=== PATIENT | male | born 1975 | race Caucasian/White ===

== ENCOUNTER 2016-10-18 09:14 | Emergency (ER) | payer BC, OTHER ==
[~2016-10-18] VITALS: Ht 188 cm; Wt 113.4 kg
--- NOTE | 2016-10-18 11:05 | ED General ---
General Chief Complaint: Psych/Social Disorder Stated Complaint: MIGRAINE SYMPTOMS Nursing Triage Note: PT REPORTS THAT HE HAS BEEN "FEELING OFF" FOR SEVERAL MONTHS. HE STATES HE GETS TO WHERE HE FEELS LIKE HE IS GOING TO PASS OUT. HE DOES C/O INTERMITTENT NAUSEA , BUT DENIES VOMITING. HE ALSO REPORTS THAT HE HAS BEEN SEEN BY [facility] FOR SAME SYMPTOMS AND WAS DX WITH ANXIETY. HE STATES THAT THEY PRESCRIBED HIM ATIVAN, BUT HE ONLY TOOK IT ONE TIME. Nursing Sepsis Screen: No Definite Risk Source of Information: Patient History of Present Illness Time Seen by Provider: 11:00 Initial Comments This 41-year-old white male presents with a relatively complex history of weakness and near syncope. The patient states that approximately 6 months ago he had an episode in which she did not feel normal. This led to an evaluation that included head and neck imaging demonstrate evidence of mycoplasma sinusitis for which she was treated with a Zithromax and subsequently incompletely treated with Augmentin. The patient's symptoms recurred today precipitating his presentation emergency department. The patient is complaining of weakness, migraine headache, near syncope, and general malaise. There's been no associated fever, chills, stiff neck or photophobia, productive cough, palpitations or shortness of breath. Patient denies lateralizing localizing neurologic findings. Past medical history includes shoulder surgery for rotator cuff 3 weeks ago. Patient is not this postoperative pain medications. He is not using a significant amount of oqre-vwq-mzhzemo medications. Allergies and Home Medications Allergies Coded Allergies: amoxicillin (Unverified Allergy, Unknown, 10/18/16) clavulanic acid (Unverified Allergy, Unknown, 10/18/16) Constitutional: No chills, diaphoresis (recurrent diaphoresis of his hands.) No fever, malaise weakness EENTM: No blurred vision, No epistaxis, No throat pain Respiratory: No cough Cardiovascular: No chest pain, No palpitations Gastrointestinal: No diarrhea, No nausea, No vomiting Genitourinary: No frequency, No hematuria Musculoskeletal: No back pain, No muscle pain Skin: No rash Psychiatric/Neurological: No Symptoms Reported Hematologic/Lymphatic: No Symptoms Reported Immunological/Allergic: no symptoms reported Past Qwdkapz-Qgqfee-Msmaav Hx Patient Social History Alcohol Use: Denies Use Recreational Drug Use: No Smoking Status: Never a Smoker 2nd Hand Smoke Exposure: No Recent Foreign Travel: No Contact w/Someone Who Travel: No Recent Infectious Disease Expo: No Recent Hopitalizations: No Surgeries HX Surgeries: Yes (HERNIA REPAIR) Surgeries: Appendectomy, Orthopedic Reviewed Nursing Assessment Reviewed/Agree w Nursing PMH: Yes Physical Exam Vital Signs Vital Sign - Last 12Hours 10/18/16 09:39 Temp 98.1 Pulse 80 Resp 16 B/P 157/113 Pulse Ox 98 O2 Delivery Room Air Capillary Refill : Less Than 3 Seconds General Appearance: No Apparent Distress WD/WN HEENT: Normal ENT Inspection Neck: Normal Inspection Respiratory: Lungs Clear Cardiovascular: Regular Rate, Rhythm Gastrointestinal: Normal Bowel Sounds Back: Normal Inspection Extremity: Normal Capillary Refill Normal Inspection Normal Range of Motion Neurologic/Psychiatric: Alert Oriented x3 No 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 Norm as Tested Skin: Normal Color Warm/Dry Progress/Results/Core Measures Results/Orders Lab Results Laboratory Tests Test 10/18/16 11:20 Range/Units Alanine Aminotransferase (ALT/SGPT) 16 0-55 U/L Albumin 4.7 H 3.2-4.5 G/DL Alkaline Phosphatase 93 40-136 U/L Anion Gap 10 5-14 MMOL/L Aspartate Amino Transf (AST/SGOT) 16 5-34 U/L BUN/Creatinine Ratio 12 Basophils # (Auto) 0.0 0.0-0.1 10^3/uL Basophils (%) (Auto) 1 0-10 % Blood Urea Nitrogen 14 7-18 MG/DL Calcium Level 9.5 8.5-10.1 MG/DL Carbon Dioxide Level 26 21-32 MMOL/L Chloride Level 107 98-107 MMOL/L Creatinine 1.21 0.60-1.30 MG/DL Eosinophils # (Auto) 0.0 0.0-0.3 10^3/uL Eosinophils (%) (Auto) 1 0-10 % Estimat Glomerular Filtration Rate > 60 Glucose Level 93 70-105 MG/DL Hematocrit 45 40-54 % Hemoglobin 15.5 13.3-17.7 G/DL Lymphocytes # (Auto) 1.3 1.0-4.0 X 10^3 Lymphocytes (%) (Auto) 30 12-44 % Mean Corpuscular Hemoglobin 28 25-34 PG Mean Corpuscular Hemoglobin Concent 35 32-36 G/DL Mean Corpuscular Volume 81 80-99 FL Mean Platelet Volume 8.5 7.4-10.4 FL Monocytes # (Auto) 0.3 0.0-1.0 X 10^3 Monocytes (%) (Auto) 7 0-12 % Neutrophils # (Auto) 2.7 1.8-7.8 X 10^3 Neutrophils (%) (Auto) 62 42-75 % Platelet Count 170 130-400 10^3/uL Potassium Level 4.5 3.6-5.0 MMOL/L Red Blood Count 5.54 4.35-5.85 10^6/uL Red Cell Distribution Width 13.6 10.0-14.5 % Sodium Level 143 135-145 MMOL/L Total Bilirubin 0.9 0.1-1.0 MG/DL Total Protein 6.7 6.4-8.2 G/DL Troponin I < 0.30 <0.30 NG/ML White Blood Count 4.8 4.3-11.0 10^3/uL My Orders Orders-DEANNA COLBY MD Cbc With Automated Diff (10/18/16 10:58) Comprehensive Metabolic Panel (10/18/16 10:58) Ekg Tracing (10/18/16 10:58) Troponin I (10/18/16 10:58) Ct Head Wo (10/18/16 10:58) Vital Signs/I&O Vital Sign - Last 12Hours 10/18/16 09:39 Temp 98.1 Pulse 80 Resp 16 B/P 157/113 Pulse Ox 98 O2 Delivery Room Air Blood Pressure Mean: 128 Progress Note : Time: 12:35 Progress Note The patient's laboratory and CT evaluation was unremarkable. Patient was reassured and asked follow-up with his primary care physician on Friday. Departure Impression Impression: Primary Impression: Dysphoric mood Disposition: 01 HOME, SELF-CARE Condition: Improved Departure-Patient Inst. Decision time for Depature: 12:39 Referrals: TRUMAN BROCK MD (PCP/Family) Primary Care Physician Patient Instructions: NO INSTRUCTIONS GIVEN Add. Discharge Instructions: Close follow-up with her doctor next week. Rest this weekend. Return of any problems or questions. All discharge instructions reviewed with patient and/or family. Voiced understanding. DEANNA COLBY MD Oct 18, 2016 11:04
--- NOTE | 2016-10-18 11:21 | Diagnostic Imaging Report ---
PROCEDURE: CT head without contrast. TECHNIQUE: Multiple contiguous axial images were obtained through the brain without the use of intravenous contrast. INDICATION: Dizziness. FINDINGS: There is no intracranial hemorrhage, edema or mass effect. The brain parenchyma and [place]-white matter differentiation are preserved. There is no hydrocephalus. No extra-axial fluid collection is seen. The calvarium and visualized portions of the paranasal sinuses and orbits appear grossly unremarkable. IMPRESSION: Unremarkable exam. Dictated by: Dictated on workstation # [id number]
[2016-10-18 11:26] LABS: BASOPHILS % (AUTO) 1 % (0-10); EOSINOPHILS % (AUTO) 1 % (0-10); LYMPHOCYTES # (AUTO) 1.3 X 10^3 (1.0-4.0); LYMPHOCYTES % (AUTO) 30 % (12-44); MEAN CORPUSCULAR HGB CONC 35 G/DL (32-36); MEAN CORPUSCULAR VOLUME 81 FL (80-99); MEAN PLATELET VOLUME 8.5 FL (7.4-10.4); MONOCYTES # (AUTO) 0.3 X 10^3 (0.0-1.0); MONOCYTES % (AUTO) 7 % (0-12); NEUTROPHILS # (AUTO) 2.7 X 10^3 (1.8-7.8); NEUTROPHILS % (AUTO) 62 % (42-75); RED CELL DISTRIBUTION WIDTH 13.6 % (10.0-14.5)
[2016-10-18 11:31] LABS: WHITE BLOOD COUNT 4.8 10^3/uL (4.3-11.0)
[2016-10-18 11:32] LABS: MEAN CORPUSCULAR HEMOGLOBIN 28 PG (25-34); PLATELET COUNT 170 10^3/uL (130-400); RED BLOOD COUNT 5.54 10^6/uL (4.35-5.85)
[2016-10-18 11:51] LABS: ALANINE AMINOTRANSFERASE 16 U/L (0-55); ALBUMIN 4.7 G/DL (3.2-4.5); ANION GAP 10 MMOL/L (5-14); ASPARTATE AMINO TRANSFERASE 16 U/L (5-34); BILIRUBIN,TOTAL 0.9 MG/DL (0.1-1.0); BLOOD UREA NITROGEN 14 MG/DL (7-18); BUN/CREATININE RATIO 12; CALCIUM 9.5 MG/DL (8.5-10.1); CARBON DIOXIDE 26 MMOL/L (21-32); CHLORIDE 107 MMOL/L (98-107); CREATININE SERUM 1.21 MG/DL (0.60-1.30); GFR ESTIMATED > 60; GLUCOSE 93 MG/DL (70-105); POTASSIUM 4.5 MMOL/L (3.6-5.0); SODIUM 143 MMOL/L (135-145); TOTAL PROTEIN 6.7 G/DL (6.4-8.2)
[2016-10-18 11:57] LABS: TROPONIN I < 0.30 NG/ML (<0.30)
[2016-10-18 12:55] VITALS: BP 135/74
== END 2016-10-18 12:55 | disposition home or self-care (01) ==
LOC: ER 09:19
DX: F34.1 Dysthymic disorder (principal); R11.0 Nausea; R55 Syncope and collapse
CPT/HCPCS: 36415; 70450; 80053; 84484; 85025; 93005

== ENCOUNTER 2016-11-28 08:13 | Outpatient (RCR) | payer BC, OTHER | END 2017-02-26 | disposition home or self-care (01) | LOC: CARD 08:13 | PROVIDERS: ATTEND Internal Medicine Interventional Cardiology | DX: R55 Syncope and collapse (principal); R00.2 Palpitations | CPT/HCPCS: 93225; 93226 ==

== ENCOUNTER → 2016-12-26 | Outpatient (CLI) | payer BC, OTHER ==
[~2016-12-26] VITALS: Ht 188 cm; Wt 115.2 kg
[~2016-12-26] MED LIST: CATHETER FLUSH 10 ML SYR IV PRN; REGADENOSON 0.4 MG/5 ML SYR (LEXISCAN) IV ONE
[2016-12-26 13:21] VITALS: BP 129/82
== END ==
LOC: CARD 11:07
PROVIDERS: ATTEND Internal Medicine Interventional Cardiology
DX: I42.9 Cardiomyopathy, unspecified (principal); R55 Syncope and collapse
CPT/HCPCS: 78452; 93017

== ENCOUNTER 2016-12-30 09:01 | Outpatient (RCR) | payer BC, OTHER | END 2017-03-02 | disposition home or self-care (01) | LOC: CARD 09:01 | PROVIDERS: ATTEND Internal Medicine Interventional Cardiology | DX: R55 Syncope and collapse (principal); R00.2 Palpitations | CPT/HCPCS: 93270 ==

== ENCOUNTER → 2020-03-23 | Outpatient (CLI) | payer BC, OTHER | LOC: CARD 12:47 | PROVIDERS: ATTEND Internal Medicine Interventional Cardiology | DX: I42.9 Cardiomyopathy, unspecified (principal); I77.810 Thoracic aortic ectasia; R42 Dizziness and giddiness; I07.1 Rheumatic tricuspid insufficiency | CPT/HCPCS: 93306 ==

== ENCOUNTER → 2021-04-03 | Outpatient (CLI) | payer BC, OTHER ==
[~2021-04-03] MED LIST changes: +HOLD METFORMIN - RECEIVED CONTRAST 20 ML VIAL IV SCH; +IOHEXOL 350 MG/ML 100 ML (OMNIPAQUE 350) VIAL IV ONE; +NS 100 ML (IVPB) BAG IV ONE; -REGADENOSON 0.4 MG/5 ML SYR (LEXISCAN) IV ONE
--- NOTE | 2021-04-03 09:21 | Diagnostic Imaging Report ---
PROCEDURE: CT angiography of the chest with contrast. TECHNIQUE: Multiple contiguous axial images were obtained through the chest after uneventful bolus administration of intravenous contrast. 3D reconstructed CTA MIP acquisitions were also performed. Auto Exposure Controls were utilized during the CT exam to meet ALARA standards for radiation dose reduction. INDICATION: Enlarged aorta. CORRELATION: None. FINDINGS: Heart size is borderline enlarged. There is some motion artifact over the ascending aorta as well as descending thoracic aorta. The maximum dimension of the aorta is approximately 3.5 cm. Aortic arch is unremarkable with a normal three-vessel branching pattern. Descending thoracic aorta is unremarkable. No pathologically enlarged mediastinal lymph nodes. Minimal haziness in the anterior mediastinal fat may reflect a small amount of residual thymic tissue. The lung pyle are clear of infiltrate. No significant pleural effusion. The visualized portions of the upper abdomen are unremarkable. The visualized osseous structures demonstrate no acute findings. IMPRESSION: Unremarkable CT examination of the thoracic aorta. Negative for acute aortic syndrome. Borderline enlarged heart size. Dictated by: Dictated on workstation # [id number]
== END ==
LOC: RAD 08:00
PROVIDERS: ATTEND Internal Medicine Cardiovascular Disease
DX: I77.810 Thoracic aortic ectasia (principal)
CPT/HCPCS: 71275

== ENCOUNTER → 2022-03-29 | Outpatient (CLI) | payer BC, OTHER | LOC: CARD 08:56 | PROVIDERS: ATTEND Internal Medicine Cardiovascular Disease | DX: I11.9 Hypertensive heart disease without heart failure (principal) | CPT/HCPCS: 93306 ==